=== PATIENT | female | born 1990 | race African-American/Black ===

== ENCOUNTER 2017-04-11 05:31 | Emergency (ER) | payer OTHER ==
[~2017-04-11] VITALS: Ht 157.5 cm; Wt 98.3 kg
[2017-04-11 05:52] LABS: HEMATOCRIT 38.3 % (36.0-46.0); HEMOGLOBIN 13.7 G/DL (11.9-15.5); MCH 26.7 PG (29.0-34.0); MCHC 35.8 G/DL (30.0-36.0); MCV 74.5 FL (83-99); PLATELET COUNT 353 K/uL (156-360); RBC DIS.WIDTH-CV 15.1 % (11.8-14.6); RED BLOOD COUNT 5.14 M/uL (3.80-5.20); WHITE BLOOD COUNT 18.7 K/uL (4.1-10.2)
[2017-04-11 06:00] LABS: CHLORIDE 102 mEq/L (99-109); POTASSIUM 3.5 mEq/L (3.7-5.4); SODIUM 137 mEq/L (136-147)
[2017-04-11 06:02] LABS: GLUCOSE 216 mg/dL (70-99); TOTAL PROTEIN 7.6 g/dL (6.4-8.3)
[2017-04-11 06:04] LABS: TOTAL BILIRUBIN 0.9 mg/dL (0.0-1.0)
[2017-04-11 06:05] LABS: ALKALINE PHOSPHATASE 77 IU/L (3-129)
[2017-04-11 06:06] LABS: CREATININE 0.8 mg/dL (0.6-1.3)
[2017-04-11 06:07] LABS: AST (GOT) 14 IU/L (2-34); GFR ESTIMATE (CALCULATED) > 59 mL/min/; UREA NITROGEN (BUN) 10 mg/dL (9-23)
[2017-04-11 06:08] LABS: QUANTITATIVE HCG < 4.0 MIU/ML
[2017-04-11 06:09] LABS: ALT (GPT) 18 IU/L (3-49); LIPASE 61 U/L (1.0-51.0)
[2017-04-11] MEDS ORDERED: BENTYL10 MG PO (07:37)
[2017-04-11] MEDS ORDERED: ZOFRAN ODT8 MG PO (07:37)
[2017-04-11 07:49] VITALS: BP 110/70
== END 2017-04-11 07:50 | disposition home or self-care (01) ==
LOC: EME 05:31
PROVIDERS: Physician Assistant
DX: R11.2 Nausea with vomiting, unspecified (principal); R19.7 Diarrhea, unspecified; E11.9 Type 2 diabetes mellitus without complications; G70.00 Myasthenia gravis without (acute) exacerbation
CPT/HCPCS: 80053; 81003; 83690; 84702; 85027; 99281; 99284

== ENCOUNTER 2017-07-12 17:35 | Emergency (ER) | payer OTHER ==
[~2017-07-12] VITALS: Ht 157.5 cm; Wt 98.2 kg
[~2017-07-12 17:35] MED LIST: BENTYL10 MG PO; ZOFRAN ODT8 MG PO
[2017-07-12 17:51] VITALS: BP 150/92
[2017-07-12 18:15] LABS: APPEARANCE SL.HAZY ((CLEAR)); BILIRUBIN NEGATIVE; BLOOD NEGATIVE; COLOR YELLOW ((YELLOW)); GLUCOSE (STRIP) 50; KETONES NEGATIVE; LEUKOCYTES LARGE; NITRITE NEGATIVE; PROTEIN (STRIP) NEGATIVE; SPECIFIC GRAVITY 1.027 (1.000-1.030); UROBILINOGEN 0.2 MG/DL (0.2-1.0)
[2017-07-12 18:52] LABS: BACTERIA RARE /HPF; EPITHELIAL CELLS 1+ /HPF; MUCUS TRACE /LPF; UCUL ADDED? YES; WHITE BLOOD CELLS TNTC /HPF (0-5)
[2017-07-12 20:44] LABS: SOURCE SWAB
[2017-07-12 22:09] LABS: CANDIDA DNA PROBE NEGATIVE; GARDNERELLA DNA PROBE NEGATIVE; TRICHOMONAS DNA PROBE POSITIVE
[2017-07-12] MEDS ORDERED: KEFLEX500 MG PO (22:24)
== END 2017-07-12 22:52 | disposition home or self-care (01) ==
LOC: EME 17:35
PROVIDERS: Physician Assistant
DX: A59.01 Trichomonal vulvovaginitis (principal); N39.0 Urinary tract infection, site not specified; N72 Inflammatory disease of cervix uteri; T83.32XA Displacement of intrauterine contraceptive device, initial encounter; R10.31 Right lower quadrant pain; Z11.3 Encounter for screening for infections with a predominantly sexual mode of transmission
CPT/HCPCS: 76856; 81003; 81025; 87086; 87210; 87480; 87491; 87510; 87591; 87660; 99281; 99284; J0696

== ENCOUNTER 2017-10-24 22:31 | Observation (INO) | payer OTHER ==
[~2017-10-24] VITALS: Ht 157.5 cm; Wt 101.6 kg
[~2017-10-24 22:31] MED LIST changes: +KEFLEX500 MG PO
[2017-10-24 23:00] LABS: HEMATOCRIT 37.6 % (36.0-46.0); HEMOGLOBIN 13.5 G/DL (11.9-15.5); MCH 26.9 PG (29.0-34.0); MCHC 35.9 G/DL (30.0-36.0); PLATELET COUNT 322 K/uL (156-360); RBC DIS.WIDTH-CV 15.1 % (11.8-14.6); RBC DIS.WIDTH-SD 40.9 % (39-53); RED BLOOD COUNT 5.01 M/uL (3.80-5.20); WHITE BLOOD COUNT 17.8 K/uL (4.1-10.2)
[2017-10-24 23:03] LABS: CHLORIDE 107 mEq/L (99-109); POTASSIUM 4.2 mEq/L (3.7-5.4); SODIUM 140 mEq/L (136-147)
[2017-10-24 23:05] LABS: GLUCOSE 106 mg/dL (70-99)
[2017-10-24 23:09] LABS: CREATININE 0.9 mg/dL (0.6-1.3); GFR ESTIMATE (CALCULATED) > 59 mL/min/
[2017-10-24 23:10] LABS: UREA NITROGEN (BUN) 12 mg/dL (9-23)
[2017-10-25] VITALS (7 sets, daily range): BP systolic 122–140; BP diastolic 68–83
[2017-10-25] MEDS ORDERED: BASAGLAR K100 UNIT/1 SC (04:29)
[2017-10-25] MEDS ORDERED: GLUCOPHAGE1000 MG PO (04:30)
[2017-10-25] MEDS ORDERED: TRULICITY1.5 MG/0.5 SC (04:30)
[2017-10-25] MEDS ORDERED: XULANE PATCH1 EACH TD (04:31)
[2017-10-25] MEDS ORDERED: PREDNISONE5 MG PO (04:32)
[2017-10-25 14:50] LABS: HEMATOCRIT 35.8 % (36.0-46.0); HEMOGLOBIN 12.6 G/DL (11.9-15.5); MCH 26.4 PG (29.0-34.0); MCHC 35.2 G/DL (30.0-36.0); MCV 74.9 FL (83-99); PLATELET COUNT 323 K/uL (156-360); RBC DIS.WIDTH-CV 15.2 % (11.8-14.6); RBC DIS.WIDTH-SD 41.2 % (39-53); RED BLOOD COUNT 4.78 M/uL (3.80-5.20); WHITE BLOOD COUNT 14.5 K/uL (4.1-10.2)
[2017-10-26 07:23] LABS: HEMATOCRIT 35.6 % (36.0-46.0); HEMOGLOBIN 12.5 G/DL (11.9-15.5); MCH 26.4 PG (29.0-34.0); MCHC 35.1 G/DL (30.0-36.0); MCV 75.1 FL (83-99); PLATELET COUNT 327 K/uL (156-360); RBC DIS.WIDTH-CV 15.1 % (11.8-14.6); RBC DIS.WIDTH-SD 41.5 % (39-53); RED BLOOD COUNT 4.74 M/uL (3.80-5.20); WHITE BLOOD COUNT 20.9 K/uL (4.1-10.2)
[2017-10-26 07:42] LABS: CHLORIDE 103 MEQ/L (99-109); CREATININE 0.7 MG/DL (0.6-1.3); GFR ESTIMATE (CALCULATED) > 59 mL/min/; POTASSIUM 4.5 MEQ/L (3.7-5.4); SODIUM 137 MEQ/L (136-147); UREA NITROGEN (BUN) 15 mg/dL (9-23)
[2017-10-26 07:44] LABS: GLUCOSE 186 mg/dL (70-99)
[2017-10-26 08:14] VITALS: BP 141/88
[2017-10-26] MEDS ORDERED: PREDNISONE10 MG PO (10:56)
[2017-10-26] MEDS ORDERED: FAMOTIDINE20 MG PO (10:56)
== END 2017-10-26 14:10 | disposition home or self-care (01) ==
LOC: EME 22:31 → EDOF 10-25 02:21 → 3EAST 10-25 02:21 → ENRESERV 10-25 02:24 → 3EAST 10-25 03:49
PROVIDERS: Emergency Medicine; Hospitalist; Internal Medicine
DX: T78.3XXA Angioneurotic edema, initial encounter (principal); E11.9 Type 2 diabetes mellitus without complications; G70.00 Myasthenia gravis without (acute) exacerbation; E66.01 Morbid (severe) obesity due to excess calories; Z68.41 Body mass index [BMI] 40.0-44.9, adult; Z88.8 Allergy status to other drugs, medicaments and biological substances
CPT/HCPCS: 80048; 81003; 82948; 85027; 86160; 86160 90; 86850; 86900; 86901; 99281; 99285; G0378; J0171; J1200; J1650; J1815; J2930; J7030; J7512; P9017; S0028